=== PATIENT | female | born 1995 | race African-American/Black ===

== ENCOUNTER 2021-02-18 23:00 | Emergency (ER) | payer MEDICAID ==
[~2021-02-18] VITALS: Ht 157.5 cm; Wt 49.9 kg
[2021-02-18 23:39] VITALS: BP_SYST 116
[2021-02-19] MEDS ORDERED: MORPHINE 2 MG/ML INJ. SYRINGE IVP ONE
[2021-02-19] MEDS ORDERED: METOCLOPRAMIDE HCL 10 MG/2 ML VIAL IVP ONE
[2021-02-19 00:17] LABS: BASOPHILS % (AUTO) 0.5 % (0.0-2.0); EOSINOPHILS % (AUTO) 0.5 % (0.0-4.0); HEMATOCRIT 38.4 % (36-48); HEMOGLOBIN 13.4 g/dL (12.0-16.0); LYMPHOCYTES % (AUTO) 32.6 % (20.5-51.5); MEAN CORPUSCULAR HEMOGLOBIN 31 pg (27-31); MEAN CORPUSCULAR HGB CONC 35 % (32-36); MEAN CORPUSCULAR VOLUME 89 fL (79.0-98.0); MONOCYTES # (AUTO) 0.4 K/uL (0.0-1.0); MONOCYTES % (AUTO) 4.3 % (1.7-9.3); NEUTROPHILS # (AUTO) 5.6 K/uL (1.8-7.7); NEUTROPHILS % (AUTO) 62.1 % (40.0-70.0); PLATELET COUNT (AUTO) 303 K/uL (130-430); RED BLOOD CELL COUNT(AUTO) 4.32 MIL/uL (4.2-6.2); RED CELL DISTRIBUTION WIDTH 12.8 % (9.0-15.0); WHITE BLOOD COUNT (AUTO) 9.1 K/uL (4.8-10.8)
[2021-02-19 00:19] LABS: ANION GAP 12 (5-15); CALCIUM 9.3 mg/dL (8.4-11.0); CHLORIDE 102 mmol/L (98-107); CREATININE 0.81 mg/dL (0.55-1.30); GLUCOSE 82 mg/dL (70-99); POTASSIUM 3.7 mmol/L (3.5-5.1); SODIUM SERUM 136 mmol/L (136-145); UREA NITROGEN, BLOOD 8 mg/dL (8-21)
[2021-02-19 00:27] LABS: GFR AFRICAN AMERICAN 110 mL/min (>90)
[2021-02-19 00:30] LABS: BILIRUBIN,URINE 1+ (NEGATIVE); BLOOD, URINE NEGATIVE (NEGATIVE); CLARITY/URINE CLEAR (CLEAR); COLOR,URINE YELLOW (YELLOW); GLUCOSE,URINE NEGATIVE (NEGATIVE); KETONES,URINE 3+ (NEGATIVE); LEUKOCYTE ESTERASE ,URINE 1+ (NEGATIVE); NITRITE, URINE NEGATIVE (NEGATIVE); PH,URINE 6.5 (5.0-8.0); PROTEIN URINE TRACE (NEGATIVE); UROBILINOGEN,URINE 0.2 (0.2-1.0)
[2021-02-19 00:43] LABS: BACTERIA,URINE MODERATE /HPF (None Seen)
[2021-02-19 00:54] LABS: ALANINE AMINOTRANSFERASE 13 U/L (12-78); ALBUMIN 3.7 g/dL (3.4-4.8); ASPARTATE AMINOTRANSFERASE 9 U/L (10-37); TOTAL BILIRUBIN 0.5 mg/dL (0.0-1.0)
[2021-02-19 00:56] LABS: HCG,QUANTITATIVE 196378 mIU/ML (0-6)
[2021-02-19 00:57] LABS: ACETONE, SERUM NEGATIVE (NEGATIVE)
[2021-02-19] MEDS ORDERED: NITROFURANTOIN MONOHYD/M-CRYST 100 MG CAPSULE (MacroBID) PO ONE (02:30)
[2021-02-19] MEDS ORDERED: NACL 0.9% 1,000 ML IV ONE ×2 (02:30)
[2021-02-19] MEDS ORDERED: PROM25SU57 RC (03:06)
[2021-02-19] MEDS ORDERED: NITR-85 PO (03:06)
[2021-02-19] MEDS ORDERED: ACET12.55 PO (03:06)
[2021-02-19] MEDS ORDERED: NITR100C PO (03:06)
[2021-02-19] MEDS ORDERED: DOXY1TAB PO (03:06)
[2021-02-19 03:55] VITALS: BP_SYST 100
== END 2021-02-19 03:55 | disposition home or self-care (01) ==
LOC: SED 23:00
DX: O21.0 Mild hyperemesis gravidarum (principal); O23.41 Unspecified infection of urinary tract in pregnancy, first trimester; E86.0 Dehydration; Z88.0 Allergy status to penicillin; Z3A.01 Less than 8 weeks gestation of pregnancy
CPT/HCPCS: 36415; 80053; 81000; 82009; 84702; 85025; 86900; 86901; 87086; 96361; 96374; 96375; 99284; J2270; J2765; J7030